=== PATIENT | male | born 1975 | race Two or more races ===

== ENCOUNTER 2022-12-08 00:26 | Emergency (ER) | payer MEDICAID, OTHER, SELFPAY ==
[2022-12-08 01:06] VITALS: BP 135/93; PULSE 70; RESP 18; TEMP 36.8; O2SAT 99; BMI 31.1
[2022-12-08] MEDS: Lidocaine HCl 1 % MPF 2 ML VIAL INFILTRATI (02:02)
[2022-12-08] MEDS: Lidocaine HCl Viscous 2 % 15 ML SOLUTION MUCOUS MEM (02:02)
[2022-12-08] MEDS: Amoxicillin/Potassium Clav 875 MG TABLET PO (02:02)
[2022-12-08] MEDS: dexAMETHasone 2 MG TABLET 10 MG PO (02:02)
--- NOTE | 2022-12-08 02:21 | PC.NURSE ---
pt medicated per MAR, pt was able to swallow all medications with no difficulty
--- NOTE | 2022-12-08 02:32 | ED.URI ---
HPI - URI/Sore Throat General Chief Complaint: General Medical Stated Complaint: Throat Pain Time Seen by Provider: 12/08/22 01:29 Source: patient Mode of arrival: ambulatory Limitations: no limitations History of Present Illness HPI Narrative: Patient been having sore throat for last 10 days for last 2 days notice increased pain on the left side of the throat with painful to swallow and muffled voice no high-grade fever patient breathing normally Related Data Previous Rx's Medication Instructions Recorded amoxicillin 875 mg-potassium 1 tab PO BID #20 tabs 12/08/22 clavulanate 125 mg tablet Allergies Allergy/AdvReac Type Severity Reaction Status Date / Time No Known Allergies Allergy Verified 12/08/22 01:05 Review of Systems Review of Systems: Yes all other systems are reviewed and are negative [facility] Social History Social History Advance Directives: No Advance Directives Information Provided: Yes Physical Exam Vital Signs: Vital Signs: Last Vital Signs Temp 98.3 F 12/08/22 01:06 Pulse 70 12/08/22 01:06 Resp 18 12/08/22 01:06 BP 135/93 H 12/08/22 01:06 Pulse Ox 99 12/08/22 01:06 O2 Del Method Room Air 12/08/22 01:06 BMI result Body Mass Index 31.1 Appearance: Alert. Oriented X3. No acute distress. ENT: Erythema of the posterior pharynx and large left tonsils with swelling of the soft palate suggestive of peritonsillar abscess Oral Mucosa moist Neck: Normal inspection. Neck supple. CVS: Normal heart rate and rhythm. Pulses normal. Respiratory: No respiratory distress. Equal air entry bilateral, no wheezing/rales/rhonchi Abdomen: Soft and nontender. Skin: Skin warm and dry. Normal skin color. Normal skin turgor. Neuro: Oriented X 3. Medications Administered Discontinued Medications Generic Name Dose Route Start Last Admin Trade Name Freq PRN Reason Stop Dose Admin Amoxicillin/Clavulanate Potassium 875 mg 12/08/22 01:56 12/08/22 02:02 Amoxicillin/Potassium Clav 875 Mg Tablet PO 12/08/22 01:57 875 mg ONCE ONE Administration Dexamethasone 10 mg 12/08/22 01:56 12/08/22 02:02 Dexamethasone 2 Mg Tablet PO 12/08/22 01:57 10 mg ONCE ONE Administration Lidocaine HCl 15 ml 12/08/22 01:39 12/08/22 02:02 Lidocaine Hcl Viscous 2 % 15 Ml Solution MUCOUS MEM 12/08/22 01:40 15 ml ONCE ONE Administration Lidocaine HCl 2 ml 12/08/22 01:39 12/08/22 02:02 Lidocaine Hcl 1 % Mpf 2 Ml Vial INFILTRATI 12/08/22 01:40 2 ml ONCE ONE Administration Medical Decision Making Medical Decision Making MDM Narrative: Patient with left peritonsillar abscess under local anesthesia 2 cc of pus drained patient felt much better given Augmentin advised to follow-up PCP Procedures Abscess I/D Site: oral (Left peritonsillar) Side (if applicable): left Local Anesthetic: lidocaine 1% Amount of anesthesia used (mL): 2 Technique: needle aspiration Amount of fluid expressed (mL): 2 Sent for culture/gram staining?: No Irrigation: No Packing used?: none Discharge Plan Discharge Clinical Impression: Abscess, peritonsillar Patient Disposition: Home, Self-Care Instructions: Peritonsillar Abscess (ED) Additional Instructions: Take antibiotics as advised Your abscess has been drained Use ice water if any bleeding or pain Follow with your PCP if gets worse Prescriptions: New amoxicillin-pot clavulanate 875-125 mg tablet 1 tab PO BID Qty: 20 0RF Interventions: ED Discharge Assessment Last Done: 12/08/22 02:49 Discharge Date/Time: 12/08/22 02:58
== END 2022-12-08 02:58 | disposition home or self-care (01) ==
PROVIDERS: Emergency Provider Internal Medicine
DX: J36 Peritonsillar abscess (principal)
CPT/HCPCS: 10160; 99283; 99284; J8540